=== PATIENT | male | born 1935 | race Caucasian/White ===

== ENCOUNTER → 2017-01-27 | Outpatient (CLI) | payer MEDICARE, BC ==
--- NOTE | ~2017-01-27 | CT16 ---
[facility] A Service of [facility] & [facility] [place] RADIOLOGY TEXT RESULTS PATIENT: JEREMY MASON LOCATION: [facility] : 39 UNIT #: [id number] AGE: [address]: Kaylie Genao SEX: M ORDER DR: [id number] [facility] [address] [place], [place] [address] [id number] O MR#: [id number] [facility] #: [id number] NAME: JEREMY MASON : 1935 SEX: M STUDY DATE/TIME: 01/27/2017 16:08 UNIT: [facility] ROOM: STUDY DESCRIPTION: CT Angio Chest for PE Attending Physician: Kaylie Genao A.P.R.N. Referring Physician: Kaylie Genao A.P.R.N. Ordering Physician: Kaylie Genao A.P.R.N. Primary Care Physician: Saad Becerra D.O. MEDICAL IMAGING REPORT This report is preliminary unless electronic signature is present EXAM CT of the chest IV contrast angiography of the aorta and pulmonary arteries HISTORY Chest pain beginning 3 weeks ago intermittently and associated with exercise. Recent blood work shows an elevated D-Dimer. Symptoms for 3 weeks. TECHNIQUE Transaxial imaging of the chest was performed with an IV bolus of contrast media. CT angiography was performed 3-D MIP multiplanar reconstructions through the pulmonary arteries. This CT exam was performed with one or more of the following radiation dose reduction techniques: automatic control, adjustment of mA and/or kV according to patient size, and iterative reconstruction. FINDINGS Scans through the lungs show advanced emphysematous lung disease and underlying basilar interstitial fibrosis. No obvious pulmonary nodules or masses are identified. Scans through the mediastinum show extensive collateralization over the right shoulder region. The pulmonary arteries are well opacified. There are no pulmonary artery filling defects identified. There is no mediastinal lymphadenopathy. The aorta appears of normal caliber with no evidence of aneurysm or dissection. The right hemidiaphragm is elevated. No paratracheal or supraclavicular lymphadenopathy appreciated. Scans through the upper abdomen shows bilateral renal cysts. The adrenal glands are normal. STS. [facility] A Service of [facility] & [facility] [place] RADIOLOGY TEXT RESULTS PATIENT: JEREMY MASON LOCATION: [facility] : 39 UNIT #: [id number] AGE: [address]: Kaylie Genao SEX: M ORDER DR: 3-D multiplanar analysis of the pulmonary arteries does not show any pulmonary artery filling defects. Note is made of bronchiectasis in the lung bases. There are degenerative changes throughout the thoracolumbar spine. CONCLUSION 1. Advanced emphysematous and interstitial lung disease. No evidence of acute infiltrate. 2. Elevated right hemidiaphragm etiology unclear. 3. Severe bronchiectasis. 4. No evidence of pulmonary embolism. No evidence of aortic aneurysm or dissection. No evidence of pleural or pericardial fluid. 5. Incidental renal cysts. 6. Marked collateralization of the right chest wall which may reflect a right subclavian or innominate stenosis. Dictated by... Saad Wan M.D. THIS IS AN ELECTRONICALLY VERIFIED REPORT Saad Wan M.D. at 01/30/2017 2:44 PM YARELY/[place] TD: 01/27/2017 22:35 JOB #: [id number] MEDICAL IMAGING REPORT Page 1 of 1 COPY
[2017-01-27 16:06] LABS: POC - CREATININE 1.16 mg/dL (0.64-1.27); POC - GFR >60.0 mL/min (>60)
== END | disposition home or self-care (01) ==
LOC: CCAT 15:19
PROVIDERS: Nurse Practitioner Adult Health
DX: R07.89 Other chest pain (principal); J43.9 Emphysema, unspecified; J98.4 Other disorders of lung; J47.9 Bronchiectasis, uncomplicated
CPT/HCPCS: 71275; 82565; Q9967